=== PATIENT | female | born 1975 | race Caucasian/White ===

== ENCOUNTER 2017-11-28 16:41 | Emergency (ER) | payer OTHER ==
[~2017-11-28] VITALS: Ht 170.2 cm; Wt 127.3 kg
[2017-11-28 16:43] VITALS: TEMP 98.5
[2017-11-28] MEDS ORDERED: NORVASC 10MG10 MG PO (17:00)
[2017-11-28] MEDS ORDERED: NEURONTIN800 MG/TAB PO (17:00)
[2017-11-28] MEDS ORDERED: COREG 6.256.25 MG/TA PO (17:00)
[2017-11-28] MEDS ORDERED: DESYREL 50MG50 MG PO (17:01)
[2017-11-28] MEDS ORDERED: PRILOSEC 20MG20 MG PO (17:01)
[2017-11-28] MEDS ORDERED: JARDIANCE25 (17:01)
[2017-11-28] MEDS ORDERED: GLUCOPHAGE XR500 M1 PO (17:01)
[2017-11-28] MEDS ORDERED: LIPITOR 80MG80 MG PO (17:01)
[2017-11-28] MEDS ORDERED: TOUJEO300 U/ML SQ (17:02)
[2017-11-28] MEDS ORDERED: LEVAQUIN 750MG750 M1 PO (17:39)
[2017-11-28 17:42] VITALS: BP 162/80; PULSE 94
== END 2017-11-28 17:54 | disposition home or self-care (01) ==
LOC: COL.ER 16:41
DX: S91.302A Unspecified open wound, left foot, initial encounter (principal); S93.402A Sprain of unspecified ligament of left ankle, initial encounter; E11.9 Type 2 diabetes mellitus without complications; Z79.4 Long term (current) use of insulin; Y92.838 Other recreation area as the place of occurrence of the external cause

== ENCOUNTER 2018-06-10 20:23 | Emergency (ER) | payer OTHER ==
[~2018-06-10] VITALS: Ht 170.2 cm; Wt 122.7 kg
[~2018-06-10 20:23] MED LIST: COREG 6.256.25 MG/TA PO; DESYREL 50MG50 MG PO; GLUCOPHAGE XR500 M1 PO; JARDIANCE25; LEVAQUIN 750MG750 M1 PO; LIPITOR 80MG80 MG PO; NEURONTIN800 MG/TAB PO; NORVASC 10MG10 MG PO; PRILOSEC 20MG20 MG PO; TOUJEO300 U/ML SQ
[2018-06-10 20:28] VITALS: BP 214/100; TEMP 97.1
[2018-06-10] MEDS ORDERED: BACTRIM DS 8001 TAB PO (22:32)
[2018-06-10] MEDS ORDERED: CEPHALEXIN500 M1 PO (22:32)
[2018-06-10 22:58] VITALS: PULSE 86
== END 2018-06-10 22:59 | disposition home or self-care (01) ==
LOC: COL.ER 20:23
DX: L02.415 Cutaneous abscess of right lower limb (principal); Z86.14 Personal history of Methicillin resistant Staphylococcus aureus infection

== ENCOUNTER 2019-01-28 08:19 | Emergency (ER) | payer OTHER ==
[~2019-01-28] VITALS: Ht 170.2 cm; Wt 113.6 kg
[~2019-01-28 08:19] MED LIST changes: +BACTRIM DS 8001 TAB PO; +CEPHALEXIN500 M1 PO
[2019-01-28 08:48] VITALS: TEMP 99.3
[2019-01-28] MEDS ORDERED: ASPIRIN 81M81 MG/TA2 PO (09:05)
[2019-01-28 09:06] LABS: BASO # 0.1 (0.0-0.2); BASO % 0.7 % (0.0-2.0); EOS # 0.3 (0.0-0.7); EOS % 3.7 % (0-4.0); GRAN % 59.9 % (42.2-75.2); HEMOGLOBIN 11.5 g/dl (12.5-16.0); LYMPH # 2.3 (1.2-3.4); LYMPH % 27.4 % (20.0-51.0); MEAN CELL VOLUME 81 fl (80.0-100.0); MEAN CORPUSCULAR HEMOGLOBIN 26 pg (27.0-31.0); MEAN CORPUSCULAR HGB CONC 32 g/dl (33.0-37.0); MEAN PLATELET VOLUME 9.7 fl (7.4-10.4); MONO # 0.7 (0.1-0.6); MONO % 7.7 % (1.7-9.3); PLATELET COUNT 268 K/mm3 (130-400)
[2019-01-28 09:07] LABS: HEMATOCRIT 36.4 % (37.0-47.0)
[2019-01-28] MEDS ORDERED: ACTOS30 MG PO (09:07)
[2019-01-28] MEDS ORDERED: ZESTORETIC 25 M1 TAB PO (09:08)
[2019-01-28 09:15] LABS: INR 0.8 (0.8-3.0); PROTHROMBIN TIME 9.8 SECONDS (9.7-12.8)
[2019-01-28 09:17] LABS: PARTIAL THROMBOPLASTIN TIME 28.7 SECONDS (26.0-37.0)
[2019-01-28 09:19] LABS: ALANINE AMINOTRANSFERASE 10 U/L (9-52); ALBUMIN 4.1 gm/dL (3.5-5.0); ALKALINE PHOSPHATASE 155 U/L (50-136); ANION GAP 11 mmol/L (7-16); AST,SGOT 17 U/L (15-37); BILIRUBIN,TOTAL 0.3 mg/dL (0.0-1.0); BLOOD UREA NITROGEN 17 mg/dL (7-17); CALCIUM 9.4 mg/dL (8.4-10.2); CARBON DIOXIDE 24 mmol/L (22-30); CHLORIDE 102 mmol/L (98-107); CREATININE, serum 0.51 (0.52-1.25); GLUCOSE 281 mg/dL (74-106); SODIUM 137 mmol/L (137-145); TOTAL PROTEIN 7.4 gm/dL (6.4-8.2)
[2019-01-28 09:30] LABS: TROPONIN-I < 0.012 ng/mL (0.000-0.035)
[2019-01-28 10:00] LABS: D-DIMER < 200.00 ng/mLDDu (200-230)
[2019-01-28 11:56] VITALS: BP 160/96; PULSE 87
== END 2019-01-28 11:56 | disposition home or self-care (01) ==
LOC: COL.ER 08:19
PROVIDERS: Family Medicine
DX: R07.89 Other chest pain (principal); I10 Essential (primary) hypertension; E78.5 Hyperlipidemia, unspecified; Z79.4 Long term (current) use of insulin

== ENCOUNTER 2021-05-23 17:09 | Inpatient (IN) | payer OTHER ==
[~2021-05-23] VITALS: Ht 170.2 cm; Wt 110.3 kg
[~2021-05-23 17:09] MED LIST changes: +ACTOS30 MG PO; +ASPIRIN 81M81 MG/TA2 PO; +ZESTORETIC 25 M1 TAB PO
[2021-05-23 18:48] LABS: BASO % 0.6 % (0.0-2.0); EOS # 0.3 K/mm3 (0.0-0.7); EOS % 3.9 % (0-4.0); GRAN # 4.2 K/mm3 (1.4-6.5); HEMATOCRIT 44.4 % (37.0-47.0); HEMOGLOBIN 15.1 g/dl (12.5-16.0); LYMPH % 27.8 % (20.0-51.0); MEAN CELL VOLUME 88 fl (80.0-100.0); MEAN CORPUSCULAR HEMOGLOBIN 30 pg (27.0-31.0); MEAN CORPUSCULAR HGB CONC 34 g/dl (33.0-37.0); MEAN PLATELET VOLUME 9.6 fl (7.4-10.4); MONO # 0.6 K/mm3 (0.1-0.6); MONO % 8.1 % (1.7-9.3); PLATELET COUNT 234 K/mm3 (130-400); RED BLOOD COUNT 5.06 M/mm3 (4.10-5.30); REDCELL DISTRIBUTION WIDTH-CV 11.8 % (11.5-14.5)
[2021-05-23 19:10] LABS: ALBUMIN 3.7 gm/dL (3.5-5.0); BILIRUBIN,TOTAL 0.4 mg/dL (0.2-1.2); C-REACTIVE PROTEIN 15.55 mg/dL (0.00-0.50); CALCIUM 9.9 mg/dL (8.4-10.2); CREATININE, serum 0.91 mg/dL (0.57-1.11)
[2021-05-23 19:15] LABS: ERYTHROCYTE SEDIMENTATION RATE 13 mm/hr (0-20)
[2021-05-23] MEDS ORDERED: PRINIVIL20 MG PO (20:53)
[2021-05-23 23:05] VITALS: BP 183/82; PULSE 95; TEMP 98.2
--- NOTE | 2021-05-23 23:05 | NUR ---
Pt admitted to room 351 per WC from ED, transferred self from chair to bed without assist, up to restroom indepently, IV and IVF present in LAC, dressing to rt toes intact. oriented to room and POC
--- NOTE | 2021-05-24 00:52 | NUR ---
telemetry dc'd per order from Anita Dumont APRN/chemical waste management technician Sourav
[2021-05-24 01:15] VITALS: BP 174/85
[2021-05-24 05:02] VITALS: BP 166/78; PULSE 94; TEMP 97.5
[2021-05-24 06:23] LABS: BASO # 0.1 K/mm3 (0.0-0.2); BASO % 0.5 % (0.0-2.0); EOS # 0.2 K/mm3 (0.0-0.7); EOS % 1.6 % (0-4.0); GRAN # 6.5 K/mm3 (1.4-6.5); GRAN % 70.4 % (42.2-75.2); HEMATOCRIT 37.4 % (37.0-47.0); LYMPH % 21.3 % (20.0-51.0); MEAN CELL VOLUME 88 fl (80.0-100.0); MEAN CORPUSCULAR HEMOGLOBIN 30 pg (27.0-31.0); MEAN CORPUSCULAR HGB CONC 34 g/dl (33.0-37.0); MEAN PLATELET VOLUME 10.1 fl (7.4-10.4); MONO # 0.6 K/mm3 (0.1-0.6); PLATELET COUNT 227 K/mm3 (130-400); RED BLOOD COUNT 4.24 M/mm3 (4.10-5.30); REDCELL DISTRIBUTION WIDTH-CV 11.7 % (11.5-14.5)
[2021-05-24 06:37] LABS: CALCIUM 8.6 mg/dL (8.4-10.2); CREATININE, serum 0.7 mg/dL (0.57-1.11); POTASSIUM 3.6 mmol/L (3.5-4.5)
[2021-05-24 06:48] LABS: HEMOGLOBIN 12.8 g/dl (12.5-16.0)
--- NOTE | 2021-05-24 07:14 | NUR ---
NOTIFIED MONTSE STINSON PER PHONE OF CONSULT.
--- NOTE | 2021-05-24 07:41 | NUR ---
Pt treated for elevated BGM this am, elevated BP x1, hydralazine given IV, dressing to right foot fell off in bed, redressed with gauze and chucho wrap. morphine started for pain, given x1, pt able to eat regular ADA diet after arrived to room, on RA, afebrile.
[2021-05-24 08:24] VITALS: BP 182/87; PULSE 89; TEMP 97.9
--- NOTE | 2021-05-24 11:13 | NUR ---
PT RESTING IN BED, C/O NAUSEA PRN ZOFRAN GIVEN PER ORDERS. SECOND TOE ON RIGHT FOOT WITH CELLULITIS. DRESSED WITH GAUZE AND ACEWRAP. PT VOMITED AND THEN FELT BETTER AFTER GETTING SICK.
[2021-05-24 12:05] VITALS: BP 170/82; PULSE 85; TEMP 97.7
--- NOTE | 2021-05-24 13:03 | NUR ---
Anesthesiologist Assistant Certified prayed and offered support with patient while spouse was in room.
--- NOTE | 2021-05-24 15:57 | NUR ---
Plan is to return home in with Nathaniel . Patient reports that she has an alternate contact with his mother in-law Kristin. PCP is Dr. Dionne Page. Patient reports that use of a cane prn and prefers [facility] in [place], [place]. Patient shares that she is in some pain about a 6 out of ten. Patient reports that she is interested in signing a DPOA form for HC. Patient reports that she wants to get back on track with taking her medications and managing her diabeties. Patient is okay with a follow up referral to her PCP. Patient shares care concern on response to call light. Educated patient on supports and apologized for care concern. Educated patient on services with case management. Will follow up on DPOA PPW.
[2021-05-24 16:00] VITALS: BP 161/73; PULSE 85; TEMP 97.6
--- NOTE | 2021-05-24 18:17 | NUR ---
UP TO BR SEVERAL TIMES THIS SHIFT.
--- NOTE | 2021-05-24 18:41 | NUR ---
PT TO HAVE MRI WEDNESDAY, NOT AVAILABLE ON WEEKENDS.
[2021-05-24 21:04] VITALS: BP 141/71; PULSE 77; TEMP 98.3
--- NOTE | 2021-05-24 22:41 | NUR ---
IVF dc'd per order
[2021-05-25 00:33] VITALS: BP 167/81; PULSE 69; TEMP 98
--- NOTE | 2021-05-25 03:32 | NUR ---
SHENA REA, ENSURED ORTHO CONSULT WAS COMPLETED AT TIME CONSULT WAS INPUT. SHENA ZAMBRANO CONFIRMED AT THIS TIME. CONSULT COMPLETED.
[2021-05-25 04:17] VITALS: BP 158/82; PULSE 73; TEMP 98.1
[2021-05-25 06:37] LABS: HEMOGLOBIN 12.3 g/dl (12.5-16.0); MEAN CELL VOLUME 89 fl (80.0-100.0); MEAN CORPUSCULAR HEMOGLOBIN 30 pg (27.0-31.0); MEAN CORPUSCULAR HGB CONC 34 g/dl (33.0-37.0); MEAN PLATELET VOLUME 10.1 fl (7.4-10.4); PLATELET COUNT 223 K/mm3 (130-400); RED BLOOD COUNT 4.08 M/mm3 (4.10-5.30); REDCELL DISTRIBUTION WIDTH-CV 11.8 % (11.5-14.5)
--- NOTE | 2021-05-25 06:47 | NUR ---
up ad sydni in room, no c/o pain tonight, dressing to rt foot intact and secure.
[2021-05-25 07:07] LABS: CREATININE, serum 0.76 mg/dL (0.57-1.11)
[2021-05-25 07:48] LABS: HEMATOCRIT 36.4 % (37.0-47.0)
[2021-05-25 08:26] VITALS: BP 166/79; PULSE 76; TEMP 98.2
[2021-05-25 12:06] VITALS: BP 168/77; PULSE 82; TEMP 98.2
[2021-05-25 17:23] VITALS: BP 160/85; PULSE 75; TEMP 97.9
[2021-05-25 20:25] VITALS: BP 153/75; PULSE 74; TEMP 97.7
[2021-05-26 02:03] VITALS: BP 152/77; PULSE 76; TEMP 98.2
--- NOTE | 2021-05-26 06:54 | NUR ---
awake and sitting up in bed, bedside shift report received from SHENA Cedeno
--- NOTE | 2021-05-26 07:14 | NUR ---
pt on RA, afebrile, no c/o pain this shift, up to restroom ad sydni. dressing to rt foot intact.
--- NOTE | 2021-05-26 07:35 | NUR ---
sitting up in bed having breakfast, am meds given
[2021-05-26 07:42] LABS: HEMATOCRIT 37.1 % (37.0-47.0); HEMOGLOBIN 12.6 g/dl (12.5-16.0); MEAN CELL VOLUME 89 fl (80.0-100.0); MEAN CORPUSCULAR HEMOGLOBIN 30 pg (27.0-31.0); MEAN CORPUSCULAR HGB CONC 34 g/dl (33.0-37.0); PLATELET COUNT 211 K/mm3 (130-400); RED BLOOD COUNT 4.15 M/mm3 (4.10-5.30); REDCELL DISTRIBUTION WIDTH-CV 11.9 % (11.5-14.5)
[2021-05-26 07:50] VITALS: BP 175/83; PULSE 72; TEMP 98
--- NOTE | 2021-05-26 07:50 | NUR ---
had breakfast and tolerated well, full assessment completed, see interventions for further info,
[2021-05-26 08:03] LABS: CALCIUM 9.3 mg/dL (8.4-10.2); CREATININE, serum 0.74 mg/dL (0.57-1.11); POTASSIUM 3.6 mmol/L (3.5-4.5)
--- NOTE | 2021-05-26 09:15 | NUR ---
up and about in room independently,
--- NOTE | 2021-05-26 11:30 | NUR ---
c/o pain to right foot/toe, medicated with roxicodone 5mg po
[2021-05-26 11:55] VITALS: BP 151/76; PULSE 64; TEMP 97.3
--- NOTE | 2021-05-26 12:05 | NUR ---
Initial visit; Patient and her mom thanked Power Ballast Machine Operator for looking in on her and offeringprayer and God's blessings. Power Ballast Machine Operator will follow-up.
--- NOTE | 2021-05-26 13:03 | NUR ---
bedside shift report given to SHENA Eng
[2021-05-26 16:00] VITALS: BP 164/79; PULSE 64; TEMP 98.3
--- NOTE | 2021-05-26 18:11 | NUR ---
Pt has done well over shift since receiving her at 1300. Resting in bed, sititng up, PRN pain meds given once overshift. Re-wrapped dressing to RLE. Foot looks well. Denies needs, will give report to nightshift nurse who will resume care.
[2021-05-26 20:40] VITALS: BP 124/68; PULSE 62; TEMP 97.9
--- NOTE | 2021-05-26 21:00 | NUR ---
Patient is resting in bed, alert and oriented x 4, VSS, denies pain, nausea or vomiting. Assessment completed, medications provided. No further needs at this time. Call light within reach.
[2021-05-27] VITALS (11 sets, daily range): BP systolic 128–163; BP diastolic 57–84; PULSE 59–68; TEMP 97.1–98.2
--- NOTE | 2021-05-27 06:25 | NUR ---
Patient has been NPO from midnight. She reported pain in her right foot. PRN provided. PT was able to rest most of the time. Antibiotics running. Report will be given to day RN.
[2021-05-27 06:32] LABS: BASO % 0.5 % (0.0-2.0); EOS # 0.2 K/mm3 (0.0-0.7); EOS % 3.8 % (0-4.0); GRAN # 3.1 K/mm3 (1.4-6.5); GRAN % 52.9 % (42.2-75.2); HEMOGLOBIN 11.6 g/dl (12.5-16.0); LYMPH # 1.9 K/mm3 (1.2-3.4); LYMPH % 32.6 % (20.0-51.0); MEAN CELL VOLUME 93 fl (80.0-100.0); MEAN CORPUSCULAR HEMOGLOBIN 30 pg (27.0-31.0); MEAN CORPUSCULAR HGB CONC 33 g/dl (33.0-37.0); MEAN PLATELET VOLUME 10.2 fl (7.4-10.4); MONO # 0.6 K/mm3 (0.1-0.6); MONO % 9.9 % (1.7-9.3); PLATELET COUNT 183 K/mm3 (130-400); RED BLOOD COUNT 3.85 M/mm3 (4.10-5.30); REDCELL DISTRIBUTION WIDTH-CV 11.8 % (11.5-14.5)
[2021-05-27 06:43] LABS: HEMATOCRIT 35.7 % (37.0-47.0)
[2021-05-27 06:50] LABS: CALCIUM 8.9 mg/dL (8.4-10.2); CREATININE, serum 0.79 mg/dL (0.57-1.11); POTASSIUM 3.7 mmol/L (3.5-4.5)
--- NOTE | 2021-05-27 07:30 | NUR ---
Assessment completed, alert/oriented, vital signs stable, pain controlled, she has been NPO for surgery, right foot dressing C/D/I and patient is going to OR for partial amputation of that right foot/great toe, blood glucose levels remain >200, holding fast acting insulin as patient is NPO/ will reassess and treat when she arrives back from PACU, heart RRR, lungs CTA/ no resp.difficulty, IV zosyn infusing at this time, denies other needs at this time
--- NOTE | 2021-05-27 07:30 | NUR ---
Patient is going to OR for right partial toe/foot amputation at this time, she has been NPO, consent signed, kelsey ARANGO, I notified OR staff that I will direct her to the waiting room once he arrives
--- NOTE | 2021-05-27 09:00 | NUR ---
Patient arrived back to room 351 from surgery at this time, she is drowsy but arousable, vital signs stable, denies pain, right toe dressing C/D/I, present, will continue to monitor
--- NOTE | 2021-05-27 11:00 | NUR ---
patient continues to do well post-op, she is now aler/oriented, vital signs stable, nerve block still working/ denies pain, tolerating PO intake
--- NOTE | 2021-05-27 21:30 | NUR ---
Patient is in chair with family at room. Alert and oriented x4, VSS, reports constant pain in her incision. PRN provided. Assessment completed. Medications provided. No further needs at this time. Call light within reach.
[2021-05-28 00:26] VITALS: BP 131/97; PULSE 62; TEMP 97.6
[2021-05-28 04:11] VITALS: BP 106/54; PULSE 67; TEMP 98.7
--- NOTE | 2021-05-28 05:59 | NUR ---
Patient has been complaining of pain in the incision. PRN provided. Recieving antibiotics infusion. Report will be given to day RN.
[2021-05-28 06:58] LABS: BASO # 0.1 K/mm3 (0.0-0.2); BASO % 0.9 % (0.0-2.0); EOS # 0.2 K/mm3 (0.0-0.7); EOS % 3.6 % (0-4.0); GRAN # 3.5 K/mm3 (1.4-6.5); GRAN % 54.3 % (42.2-75.2); HEMOGLOBIN 11.2 g/dl (12.5-16.0); LYMPH # 2.1 K/mm3 (1.2-3.4); LYMPH % 32.6 % (20.0-51.0); MEAN CELL VOLUME 92 fl (80.0-100.0); MEAN CORPUSCULAR HEMOGLOBIN 30 pg (27.0-31.0); MEAN CORPUSCULAR HGB CONC 32 g/dl (33.0-37.0); MEAN PLATELET VOLUME 10.1 fl (7.4-10.4); MONO # 0.5 K/mm3 (0.1-0.6); MONO % 8.3 % (1.7-9.3); PLATELET COUNT 187 K/mm3 (130-400); REDCELL DISTRIBUTION WIDTH-CV 11.9 % (11.5-14.5)
[2021-05-28 07:18] LABS: CREATININE, serum 0.77 mg/dL (0.57-1.11); HEMATOCRIT 34.8 % (37.0-47.0); POTASSIUM 3.9 mmol/L (3.5-4.5)
[2021-05-28 07:26] VITALS: BP 143/81; PULSE 66; TEMP 97.8
--- NOTE | 2021-05-28 08:21 | NUR ---
Scheduled medications given. Shift assessment complete. Patient C/O 8/10 throbbing pain at surgical site. PRN medication given. Extremity elevated. Dressing clean, dry, and intact. Scaling and flaking noted on left heel. Patient denies any further pain, discomfort, SOA, or further needs at this time. Education given regarding incentive spirometer. VSS. Patient A&O.
[2021-05-28] MEDS ORDERED: CEPHALEXIN500 M1 PO (09:49)
[2021-05-28] MEDS ORDERED: GLUCOSE TEST ST1 DEV MC (10:07)
[2021-05-28] MEDS ORDERED: LIPITOR 80MG80 MG PO (10:10)
[2021-05-28] MEDS ORDERED: COREG 6.256.25 MG/TA PO ×2 (10:11)
[2021-05-28] MEDS ORDERED: PRINIVIL40 MG PO (10:12)
[2021-05-28] MEDS ORDERED: ROXICODONE 55 MG/TAB PO (10:14)
[2021-05-28] MEDS ORDERED: LYRICA 25MG CAP25 MG PO (10:15)
[2021-05-28] MEDS ORDERED: NOVOLIN 70100 UNIT/2 SQ (10:21)
[2021-05-28] MEDS ORDERED: INSULIN PEN NE1 EAC1 MC (10:26)
[2021-05-28] MEDS ORDERED: BD ALCOHOL1 SWA MC (10:26)
[2021-05-28] MEDS ORDERED: GLUCAGON EMERGEN1 M1 SQ (10:26)
[2021-05-28] MEDS ORDERED: CONTROL SOLUTI1 EAC1 MC (10:26)
[2021-05-28] MEDS ORDERED: LANCETS MC (10:26)
[2021-05-28] MEDS ORDERED: GLUTOSE 1515 GM PO (10:26)
[2021-05-28] MEDS ORDERED: COREG12.5 MG PO (10:38)
[2021-05-28 11:17] VITALS: BP 113/61; PULSE 63; TEMP 98.2
--- NOTE | 2021-05-28 14:01 | NUR ---
The clinical team is ready to discharge the patient today. The patient informed the team that she does not get paid until Wednesday and will not be able to afford her meds until then. ATIF staffed with the pharmacist. The pharmacist called into [facility] a fews days worth of meds that the patient will need. Total is $38.05. ATIF contacted and faxed the med voucher to Oksana at [facility]. ATIF met with the patient to update. The patient had no other concerns for ATIF. 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 No additional needs at this time.
--- NOTE | 2021-05-28 14:52 | NUR ---
Patient deemed fit for discharge. IV DC's, catheter intact, no signs of phlebitis. Discharge education/instructions given. Patient verbalized that she would not be able to afford medications until Wednesday. Social work and pharmacy notified. Voucher for [facility] given. Patient educated of dressing changes, supplies given. All questions answered. PRN tylenol given. Education given regarding glucose checks and insulin administration given. Patient was able to show the RN how to do it correctly. Patient denies any further pain, discomfort, SOA, or needs at this time. VSS. Patient A&O. Patient escorted from [facility] via wheelchair by [facility] Staff. transporting home.
== END 2021-05-28 14:47 | disposition home or self-care (01) | DRG 617 ==
LOC: COL.ER 17:09 → MEDICAL 19:51
PROVIDERS: Nurse Practitioner Family; Orthopaedic Surgery; Personal Emergency Response Attendant; Physician Assistant; ADMIT Internal Medicine
PROC: 0Y6R0Z1 Detachment at Right 2nd Toe, High, Open Approach (ICD-10-PCS; principal; 2021-05-27 08:15)
DX: E11.69 Type 2 diabetes mellitus with other specified complication (principal); M86.9 Osteomyelitis, unspecified; E78.5 Hyperlipidemia, unspecified; E11.621 Type 2 diabetes mellitus with foot ulcer; L97.519 Non-pressure chronic ulcer of other part of right foot with unspecified severity; E11.65 Type 2 diabetes mellitus with hyperglycemia; I10 Essential (primary) hypertension; E11.42 Type 2 diabetes mellitus with diabetic polyneuropathy; Z86.14 Personal history of Methicillin resistant Staphylococcus aureus infection; E11.628 Type 2 diabetes mellitus with other skin complications; L03.031 Cellulitis of right toe; Z79.82 Long term (current) use of aspirin; L89.899 Pressure ulcer of other site, unspecified stage
CPT/HCPCS: 99223-AI; 99232-AI; 99233-AI; 99239; J0360; J1170; J1650; J1815; J2250; J2270; J2405; J2543; J2704; J7030

== ENCOUNTER → 2021-08-18 | Outpatient (RCR) | payer OTHER ==
[~2021-08-18] MED LIST changes: +AMOXICILLIN 8751 TAB PO; +BD ALCOHOL1 SWA MC; +CELEBREX 200MG200 MG PO; +CONTROL SOLUTI1 EAC1 MC; +COREG 25MG25 MG/TAB PO; +COREG12.5 MG PO; +EPA FISH OIL1 SGL PO; +FLINTSTONES COM1 CT1 PO; +GLUCAGON EMERGEN1 M1 SQ; +GLUCOSE TEST ST1 DEV MC; +GLUTOSE 1515 GM PO; +INSULIN PEN NE1 EAC1 MC; +JANUMXR100-1000 PO; +JARDIANCE25 PO; +LANCETS MC; +LYRICA 25MG CAP25 MG PO; +LYRICA 75MG CAP75 MG PO; +NOVOLIN 70100 UNIT/2 SQ; +PRINIVIL20 MG PO; +PRINIVIL40 MG PO; +ROXICODONE 55 MG/TAB PO; +RYBELSUS7 MG PO; +ZOFRAN 4MG T4 MG/TAB PO; +ZYVOX 600MG600 MG PO
== END | disposition home or self-care (01) ==
LOC: WSOT
DX: M20.021 Boutonniere deformity of right finger(s) (principal); M25.522 Pain in left elbow; E11.59 Type 2 diabetes mellitus with other circulatory complications; I10 Essential (primary) hypertension; E78.5 Hyperlipidemia, unspecified; Z79.4 Long term (current) use of insulin

== ENCOUNTER 2021-09-11 16:00 | Outpatient (RCR) | payer OTHER ==
[~2021-09-11 16:00] MED LIST changes: -AMOXICILLIN 8751 TAB PO; -CELEBREX 200MG200 MG PO; -COREG 25MG25 MG/TAB PO; -EPA FISH OIL1 SGL PO; -FLINTSTONES COM1 CT1 PO; -JANUMXR100-1000 PO; -JARDIANCE25 PO; -LYRICA 75MG CAP75 MG PO; -RYBELSUS7 MG PO; -ZOFRAN 4MG T4 MG/TAB PO; -ZYVOX 600MG600 MG PO
== END 2021-09-18 | disposition home or self-care (01) ==
LOC: WSOT
DX: S53.105D Unspecified dislocation of left ulnohumeral joint, subsequent encounter (principal); M20.029 Boutonniere deformity of unspecified finger(s); X58.XXXD Exposure to other specified factors, subsequent encounter

== ENCOUNTER 2021-11-11 15:33 | Emergency (ER) | payer OTHER ==
[~2021-11-11] VITALS: Ht 170.2 cm; Wt 111.4 kg
[2021-11-11 15:52] VITALS: TEMP 98.4
[2021-11-11 16:38] LABS: BASO # 0.1 K/mm3 (0.0-0.2); BASO % 0.4 % (0.0-2.0); EOS # 0.4 K/mm3 (0.0-0.7); EOS % 3.2 % (0.0-4.0); GRAN # 10.4 K/mm3 (1.4-6.5); GRAN % 74.9 % (42.2-75.2); HEMOGLOBIN 12.2 g/dl (12.5-16.0); LYMPH # 1.8 K/mm3 (1.2-3.4); LYMPH % 13.2 % (20.0-51.0); MEAN CELL VOLUME 85 fl (80.0-100.0); MEAN CORPUSCULAR HEMOGLOBIN 28 pg (27-31); MEAN CORPUSCULAR HGB CONC 33 g/dl (33.0-37.0); MEAN PLATELET VOLUME 9.5 fl (7.4-10.4); MONO # 1.1 K/mm3 (0.1-0.6); MONO % 7.8 % (1.7-9.3); PLATELET COUNT 289 K/mm3 (130-400); RED BLOOD COUNT 4.33 M/mm3 (4.10-5.30); REDCELL DISTRIBUTION WIDTH-CV 12.9 % (11.5-14.5)
[2021-11-11 16:39] LABS: HEMATOCRIT 36.9 % (37.0-47.0)
[2021-11-11 16:54] LABS: C-REACTIVE PROTEIN 18.76 mg/dL (0.00-0.50); CREATININE, serum 0.97 mg/dL (0.57-1.11); POTASSIUM 3.9 mmol/L (3.5-4.5)
[2021-11-11] MEDS ORDERED: ZYVOX 600MG600 MG PO (17:08)
[2021-11-11 17:14] VITALS: BP 141/75; PULSE 87
[2021-11-12] MEDS ORDERED: JARDIANCE25 PO (16:54)
[2021-11-12] MEDS ORDERED: PRILOSEC 20MG20 MG PO (16:58)
[2021-11-12] MEDS ORDERED: JANUMXR100-1000 PO (16:59)
[2021-11-12] MEDS ORDERED: RYBELSUS7 MG PO (17:00)
[2021-11-12] MEDS ORDERED: DESYREL 50MG50 MG PO (17:00)
[2021-11-12] MEDS ORDERED: CELEBREX 200MG200 MG PO (17:01)
[2021-11-12] MEDS ORDERED: COREG 25MG25 MG/TAB PO (17:32)
[2021-11-12] MEDS ORDERED: LYRICA 75MG CAP75 MG PO (17:34)
[2021-11-12] MEDS ORDERED: EPA FISH OIL1 SGL PO (17:37)
[2021-11-12] MEDS ORDERED: FLINTSTONES COM1 CT1 PO (17:38)
== END 2021-11-11 17:16 | disposition home or self-care (01) ==
LOC: COL.ER 15:33
PROVIDERS: Emergency Medicine
DX: M86.9 Osteomyelitis, unspecified (principal); L03.115 Cellulitis of right lower limb; E11.9 Type 2 diabetes mellitus without complications; Z91.040 Latex allergy status; Z88.1 Allergy status to other antibiotic agents
CPT/HCPCS: J2270; J2543

== ENCOUNTER 2021-11-12 14:39 | Inpatient (IN) | payer OTHER ==
[~2021-11-12] VITALS: Ht 170.2 cm; Wt 111.6 kg
[~2021-11-12 14:39] MED LIST changes: +ZYVOX 600MG600 MG PO
[2021-11-12 16:20] LABS: BASO # 0.1 K/mm3 (0.0-0.2); BASO % 0.6 % (0.0-2.0); EOS # 0.5 K/mm3 (0.0-0.7); EOS % 4.4 % (0.0-4.0); GRAN # 8.2 K/mm3 (1.4-6.5); GRAN % 68.3 % (42.2-75.2); HEMATOCRIT 37.8 % (37.0-47.0); HEMOGLOBIN 12.2 g/dl (12.5-16.0); LYMPH # 2.2 K/mm3 (1.2-3.4); LYMPH % 18.1 % (20.0-51.0); MEAN CELL VOLUME 88 fl (80.0-100.0); MEAN CORPUSCULAR HEMOGLOBIN 28 pg (27-31); MEAN CORPUSCULAR HGB CONC 32 g/dl (33.0-37.0); MEAN PLATELET VOLUME 9.6 fl (7.4-10.4); MONO % 8.3 % (1.7-9.3); PLATELET COUNT 305 K/mm3 (130-400); RED BLOOD COUNT 4.32 M/mm3 (4.10-5.30); REDCELL DISTRIBUTION WIDTH-CV 12.8 % (11.5-14.5)
[2021-11-12 16:36] LABS: C-REACTIVE PROTEIN 15.29 mg/dL (0.00-0.50); CREATININE, serum 0.91 mg/dL (0.57-1.11)
[2021-11-12] MEDS ORDERED: JARDIANCE25 PO (16:54)
[2021-11-12] MEDS ORDERED: PRILOSEC 20MG20 MG PO (16:58)
[2021-11-12] MEDS ORDERED: JANUMXR100-1000 PO (16:59)
[2021-11-12] MEDS ORDERED: DESYREL 50MG50 MG PO (17:00)
[2021-11-12] MEDS ORDERED: RYBELSUS7 MG PO (17:00)
[2021-11-12] MEDS ORDERED: CELEBREX 200MG200 MG PO (17:01)
[2021-11-12 17:15] VITALS: BP 132/74; PULSE 72; TEMP 98.4
[2021-11-12] MEDS ORDERED: COREG 25MG25 MG/TAB PO (17:32)
[2021-11-12] MEDS ORDERED: LYRICA 75MG CAP75 MG PO (17:34)
[2021-11-12] MEDS ORDERED: EPA FISH OIL1 SGL PO (17:37)
[2021-11-12] MEDS ORDERED: FLINTSTONES COM1 CT1 PO (17:38)
--- NOTE | 2021-11-12 18:22 | NUR ---
Patient admitted to room 324 from Er. Med rec updated and completed. Assessment completed. Iv antiboitcs as ordered. Patient up to the bathroom and voided. Dinner ordered, she denies nausea. Right foot re wrapped per patient request. Third toe purple open sore and drainage noted. Also a callous to foot seen. Will report off to nightnurse
--- NOTE | 2021-11-12 19:30 | NUR ---
Pt. sitting up in bed. Pt. is A&OX3, assessment complete. IV to rt. wrist patent, IV fluids infusing per orders. Dessing to rt. foot CDI. Pt. denies pain or other needs, call light within reach.
[2021-11-12 19:56] VITALS: BP 139/72; PULSE 73; TEMP 97.3
[2021-11-13] VITALS (13 sets, daily range): BP systolic 104–143; BP diastolic 52–81; PULSE 68–77; TEMP 97.4–98.6
[2021-11-13 06:43] LABS: BASO # 0.1 K/mm3 (0.0-0.2); BASO % 0.7 % (0.0-2.0); EOS # 0.4 K/mm3 (0.0-0.7); GRAN # 4.8 K/mm3 (1.4-6.5); GRAN % 59.9 % (42.2-75.2); LYMPH # 2.1 K/mm3 (1.2-3.4); LYMPH % 26.1 % (20.0-51.0); MEAN CELL VOLUME 86 fl (80.0-100.0); MEAN CORPUSCULAR HGB CONC 33 g/dl (33.0-37.0); MEAN PLATELET VOLUME 9.7 fl (7.4-10.4); MONO # 0.6 K/mm3 (0.1-0.6); MONO % 7.9 % (1.7-9.3); PLATELET COUNT 256 K/mm3 (130-400); RED BLOOD COUNT 3.54 M/mm3 (4.10-5.30); REDCELL DISTRIBUTION WIDTH-CV 12.8 % (11.5-14.5)
[2021-11-13 06:48] LABS: HEMATOCRIT 30.6 % (37.0-47.0); MEAN CORPUSCULAR HEMOGLOBIN 28 pg (27-31)
[2021-11-13 06:57] LABS: CALCIUM 8.5 mg/dL (8.4-10.2); CREATININE, serum 0.76 mg/dL (0.57-1.11); POTASSIUM 3.7 mmol/L (3.5-4.5)
--- NOTE | 2021-11-13 10:52 | NUR ---
Fusing Machine Operator met with patient to discuss discharge planning. Patient lives in [place] with her , Edmundo (ph#[phone]) [address] Dr. Mason for primary care. Patient obtains medications from [facility] with no difficulties and is employed at [employer] in [place]. Patient does not use any DME and is independent with ADLS. Patient does not have Advance Directives and is not interested in establishing DPOA-HC at this time. Patient plans to return home at time of discharge. Discharge Plan: Home
--- NOTE | 2021-11-13 12:18 | NUR ---
Sandie: No mu-ism preference Situation: Metal Trimmer stopped by on rounds Background: PT is from [facility] in [facility] Assessment: PT seems content. She did ask for prayer. Metal Trimmer prayed with her and she appreciated the visit. Recommendation: Metal Trimmer will follow up as needed.
--- NOTE | 2021-11-13 20:56 | NUR ---
ASSESSMENT COMPLETE. PT LYING IN BED ASLEEP. A&O. COMPLAINING OF THROBBING PAIN IN RIGHT FOOT 10/28. NORCO WAS GIVEN. (SEE EMAR). PT. ALSO COMPLAINING OF MILD NAUSEA. SPRITE ZERO WAS PROVIDED AND ACCEPTED. CALL LIGHT IN REACH. NO FURTHER NEEDS AT THIS TIME.
--- NOTE | 2021-11-14 00:31 | NUR ---
PT. REPORT NAUSEA IS GONE AND PAIN MINIMAL. CALL LIGHT IN REACH. NO FURTHER NEEDS AT THIS TIME.
[2021-11-14 04:06] VITALS: BP 142/77; PULSE 77; TEMP 97.8
--- NOTE | 2021-11-14 05:56 | NUR ---
PT. WAS AWAKE SEVERAL TIMES THROUGHOUT THE NIGHT BUT HAD NO NEEDS. PAIN WAS CONTROLLED WITH A NORCO AROUND 0400 (SEE EMAR). CALL LIGHT IN REACH. NO NEEDS AT THIS TIME.
[2021-11-14 07:31] VITALS: BP 146/82; PULSE 73; TEMP 97.7
[2021-11-14 11:09] VITALS: BP 137/63; PULSE 63; TEMP 98.3
[2021-11-14 15:11] VITALS: BP 131/63; PULSE 65; TEMP 97.5
[2021-11-14 19:42] VITALS: BP 132/69; PULSE 64; TEMP 98.7
--- NOTE | 2021-11-14 21:13 | NUR ---
ASSESSMENT COMPLETE. PT SITTING UP IN BED WATCHING TV. COMPLAINING OF SHARP PAIN 8/10 TO RIGHT FOOT. NORCO WAS GIVEN (SEE EMAR). DRESSING TO RIGHT FOOT CDI. INT TO RIGHT AC PATENT. CALL LIGHT IN REACH. NO FURTHER NEEDS AT THIS TIME.
[2021-11-14 23:18] VITALS: BP 158/75; PULSE 64; TEMP 98.6
[2021-11-15 04:19] VITALS: BP 136/69; PULSE 69; TEMP 97.8
--- NOTE | 2021-11-15 05:13 | NUR ---
PT. SLEPT QUITLY THROUGHOUT THE NIGHT. PAIN WAS ADEQUATELY CONTROLLED WITH ONE NORCO EARLIER IN THE EVENING (SEE EMAR). NO NEEDS IN THE NIGHT.
--- NOTE | 2021-11-15 07:42 | NUR ---
Patient sitting up in bed, A&Ox4. VSS. IV CDI, fluids infusing. Denies pain and discomfort. Right foot dressing CDI. Call light within reach
[2021-11-15 07:56] LABS: BASO # 0.1 K/mm3 (0.0-0.2); EOS # 0.4 K/mm3 (0.0-0.7); EOS % 6.3 % (0.0-4.0); GRAN # 2.9 K/mm3 (1.4-6.5); GRAN % 49.9 % (42.2-75.2); HEMOGLOBIN 11.3 g/dl (12.5-16.0); LYMPH % 34.1 % (20.0-51.0); MEAN CELL VOLUME 86 fl (80.0-100.0); MEAN CORPUSCULAR HEMOGLOBIN 28 pg (27-31); MEAN CORPUSCULAR HGB CONC 33 g/dl (33.0-37.0); MEAN PLATELET VOLUME 9.4 fl (7.4-10.4); MONO # 0.5 K/mm3 (0.1-0.6); MONO % 8.2 % (1.7-9.3); PLATELET COUNT 281 K/mm3 (130-400); RED BLOOD COUNT 4.03 M/mm3 (4.10-5.30); REDCELL DISTRIBUTION WIDTH-CV 12.7 % (11.5-14.5)
[2021-11-15 07:57] LABS: HEMATOCRIT 34.8 % (37.0-47.0)
[2021-11-15 08:00] VITALS: BP 153/74; PULSE 67; TEMP 98.6
[2021-11-15] MEDS ORDERED: AMOXICILLIN 8751 TAB PO (09:35)
[2021-11-15] MEDS ORDERED: ROXICODONE 55 MG/TAB PO (09:36)
[2021-11-15] MEDS ORDERED: ZOFRAN 4MG T4 MG/TAB PO (09:36)
--- NOTE | 2021-11-15 11:58 | NUR ---
Initial visit; Patient thanked Investment Sales Assistant for looking in on her, listening and recognizing her from a previous hospitalization. Ekaterina spoke of her health and states she will be more insistent with physicians when she is concerned about a health issue. Investment Sales Assistant will keep patient in her prayers.
--- NOTE | 2021-11-15 12:35 | NUR ---
Discharge paperwork reviewed with the patient. Patient verbalized an understanding to follow doctors orders. IV removed tip intact. Personal belongings with the patient. Nurse wheeled the patient to the ED entrance. No further needs expressed
== END 2021-11-15 12:35 | disposition home or self-care (01) | DRG 617 ==
LOC: COL.ER 14:39 → SURG 15:51
PROVIDERS: Emergency Medicine; Orthopaedic Surgery; Physician Assistant; ADMIT Student in an Organized Health Care Education/Training Program
PROC: 0Y6T0Z0 Detachment at Right 3rd Toe, Complete, Open Approach (ICD-10-PCS; principal; 2021-11-13 14:00)
DX: E11.69 Type 2 diabetes mellitus with other specified complication (principal); M86.9 Osteomyelitis, unspecified; I10 Essential (primary) hypertension; E78.5 Hyperlipidemia, unspecified; E11.621 Type 2 diabetes mellitus with foot ulcer; L97.519 Non-pressure chronic ulcer of other part of right foot with unspecified severity; L03.031 Cellulitis of right toe; Z79.82 Long term (current) use of aspirin; Z23 Encounter for immunization
CPT/HCPCS: 99222-AI; 99232-AI; 99239; J1650; J1815; J2270; J2543; J7030; J7120

== ENCOUNTER → 2022-05-01 | Outpatient (CLI) | payer OTHER ==
[~2022-05-01] MED LIST changes: +AMOXICILLIN 8751 TAB PO; +CELEBREX 200MG200 MG PO; +COREG 25MG25 MG/TAB PO; +EPA FISH OIL1 SGL PO; +FLINTSTONES COM1 CT1 PO; +JANUMXR100-1000 PO; +JARDIANCE25 PO; +LYRICA 75MG CAP75 MG PO; +RYBELSUS7 MG PO; +ZOFRAN 4MG T4 MG/TAB PO
== END ==
LOC: COL.RAD 10:14
DX: M14.671 Charcot's joint, right ankle and foot (principal); M20.11 Hallux valgus (acquired), right foot; M86.171 Other acute osteomyelitis, right ankle and foot; S92.511A Displaced fracture of proximal phalanx of right lesser toe(s), initial encounter for closed fracture; L89.893 Pressure ulcer of other site, stage 3

== ENCOUNTER → 2022-07-14 | Outpatient (CLI) | payer OTHER ==
[~2022-07-14] MED LIST changes: +CRESTOR40 MG PO; +CUBICIN 500MG500 MG IV; +MAXIPIME2 GM IV; +OZEMPIC1 MG/0.71 SQ; +SYNJARDY XR 121 EACH PO
== END ==
LOC: COL.RAD 06:52
DX: S92.341A Displaced fracture of fourth metatarsal bone, right foot, initial encounter for closed fracture (principal); S92.911A Unspecified fracture of right toe(s), initial encounter for closed fracture; E11.628 Type 2 diabetes mellitus with other skin complications; L08.9 Local infection of the skin and subcutaneous tissue, unspecified; M14.671 Charcot's joint, right ankle and foot; X58.XXXA Exposure to other specified factors, initial encounter
CPT/HCPCS: A9575

== ENCOUNTER 2023-06-14 06:53 | Inpatient (IN) | payer OTHER ==
[2023-06-14] VITALS (573 sets, daily range): BP systolic 106–109; BP diastolic 58–59; PULSE 81–83; TEMP 97.8; O2SAT 88–100
[~2023-06-14] VITALS: Ht 170.2 cm; Wt 120.3 kg
[~2023-06-14 06:53] MED LIST changes: -ASPIRIN 81M81 MG/TA2 PO; +ASPIRIN E.C. 8181 MG PO; +CLEOCIN HCL300 MG PO; +ILOTYCIN5 MG/GM OP; +LYRICA 150MG C150 MG PO; -LYRICA 75MG CAP75 MG PO; -NORVASC 10MG10 MG PO; +NORVASC 5MG5 MG/TAB PO
[2023-06-14 07:41] LABS: HEMATOCRIT 39.2 % (37.0-47.0); HEMOGLOBIN 12.4 g/dl (12.5-16.0); MEAN CELL VOLUME 93 fl (80.0-100.0); MEAN CORPUSCULAR HEMOGLOBIN 30 pg (27-31); MEAN CORPUSCULAR HGB CONC 32 g/dl (33.0-37.0); MEAN PLATELET VOLUME 9.8 fl (7.4-10.4); PLATELET COUNT 231 K/mm3 (130-400); REDCELL DISTRIBUTION WIDTH-CV 13.7 % (11.5-14.5)
[2023-06-14 07:42] LABS: ERYTHROCYTE SEDIMENTATION RATE 65 mm/hr (0-20)
[2023-06-14 08:01] LABS: ALBUMIN 2.7 gm/dL (3.5-5.0); ALKALINE PHOSPHATASE 97 U/L (40-150); ANION GAP 15 mmol/L (7-16); AST,SGOT 8 U/L (5-34); BILIRUBIN,TOTAL 0.3 mg/dL (0.2-1.2); BLOOD UREA NITROGEN 37 mg/dL (7-19); CALCIUM 9.3 mg/dL (8.4-10.2); CHLORIDE 103 mmol/L (98-107); CREATININE, serum 1.66 mg/dL (0.57-1.11); GLUCOSE 306 mg/dL (70-99); POTASSIUM 5.3 mmol/L (3.5-4.5); SODIUM 131 mmol/L (136-145); TOTAL PROTEIN 7.2 gm/dL (6.2-8.1)
[2023-06-14 08:07] LABS: ALANINE AMINOTRANSFERASE < 6 U/L (0-55); C-REACTIVE PROTEIN 40.13 mg/dL (0.00-0.50); CARBON DIOXIDE 13 mmol/L (22-29)
[2023-06-14 08:23] LABS: BAND 8 % (0-10); LYMPHOCYTE 6 % (20.0-51.0); NEUTROPHILS 77 % (42.0-75.2); PLATELET ESTIMATE NORMAL (NORMAL)
[2023-06-14 10:55] LABS: MAGNESIUM 2.6 mg/dL (1.6-2.6); PHOSPHOROUS 3.2 mg/dL (2.3-4.7)
--- NOTE | 2023-06-14 11:30 | NUR ---
Pt arrives to ICU 4 from ED at this time. Pt alert and oriented upon arrival; able to transfer self for ER bed to ICU bed. Pt has [id number] diabetic ulcer to left foot; depth of ulcer unable to be determined due to eschar being present. Ulcer had pungent odor. Yellow drainage drainging from some areas of ulcer and purulent drainage coming from other areas of ulcer. [id number] diabetic ulcer to right foot; possible undermining around edges of ulcer but unable to determine. Edges of ulcer are a dark brown in color; possible eschar but unable to determine. Minimal yellow drainage from wound. No odor present from ulcer. Wound cultures of each ulcer obtained. Wounds were then cleaned with saline and 4x4's then dressed with xeroform gauze, non-adherent pad, 4x4's, and kerlix. Prior to being dressed wounds were photographed per policy with pt's permission. Pt has wallet, purse, and clothes in her possession; recommened to for to take home but he forgot. Pt had this nurse place belongings in closet. Pt informed on plan of care; all questions answered appropriately. Call light in reach and pt instrutcted to call for assistance.
[2023-06-14] MEDS ORDERED: ALDACTONE 100M100 MG PO (11:42)
[2023-06-14] MEDS ORDERED: ACTOS 15MG TAB15 MG PO (11:42)
[2023-06-14 12:46] LABS: CALCIUM 8.6 mg/dL (8.4-10.2); CREATININE, serum 1.65 mg/dL (0.57-1.11); POTASSIUM 4.9 mmol/L (3.5-4.5)
[2023-06-14 15:14] LABS: CALCIUM 8.5 mg/dL (8.4-10.2); CREATININE, serum 1.59 mg/dL (0.57-1.11); POTASSIUM 4.6 mmol/L (3.5-4.5)
[2023-06-14 16:48] LABS: CALCIUM 8.4 mg/dL (8.4-10.2); CREATININE, serum 1.46 mg/dL (0.57-1.11); POTASSIUM 4.7 mmol/L (3.5-4.5)
[2023-06-14 18:51] LABS: CALCIUM 8.3 mg/dL (8.4-10.2); CREATININE, serum 1.4 mg/dL (0.57-1.11); POTASSIUM 4.6 mmol/L (3.5-4.5)
[2023-06-14 21:10] LABS: CALCIUM 8.5 mg/dL (8.4-10.2); CREATININE, serum 1.3 mg/dL (0.57-1.11); POTASSIUM 4.5 mmol/L (3.5-4.5)
[2023-06-14 23:52] LABS: CREATININE, serum 1.27 mg/dL (0.57-1.11); POTASSIUM 4.3 mmol/L (3.5-4.5)
[2023-06-15] VITALS (582 sets, daily range): BP systolic 96–122; BP diastolic 50–69; PULSE 64–89; TEMP 97.8–100.2; O2SAT 84–100
[2023-06-15 01:54] LABS: CREATININE, serum 1.26 mg/dL (0.57-1.11)
[2023-06-15 04:01] LABS: CALCIUM 8.1 mg/dL (8.4-10.2); CREATININE, serum 1.16 mg/dL (0.57-1.11); POTASSIUM 4.2 mmol/L (3.5-4.5)
[2023-06-15 06:10] LABS: CALCIUM 8.6 mg/dL (8.4-10.2); CREATININE, serum 1.28 mg/dL (0.57-1.11); POTASSIUM 4.6 mmol/L (3.5-4.5)
[2023-06-15 06:20] LABS: CHOLESTEROL RISK RATIO 6.3
[2023-06-15 06:23] LABS: C-REACTIVE PROTEIN 34.79 mg/dL (0.00-0.50)
[2023-06-15 07:36] LABS: BASO % 0.3 % (0.0-2.0); EOS # 0.2 K/mm3 (0.0-0.7); EOS % 1.4 % (0.0-4.0); GRAN # 12.3 K/mm3 (1.4-6.5); GRAN % 81.4 % (42.2-75.2); HEMATOCRIT 34.5 % (37.0-47.0); HEMOGLOBIN 11.3 g/dl (12.5-16.0); LYMPH # 0.9 K/mm3 (1.2-3.4); LYMPH % 5.9 % (20.0-51.0); MEAN CELL VOLUME 90 fl (80.0-100.0); MEAN CORPUSCULAR HEMOGLOBIN 29 pg (27-31); MEAN CORPUSCULAR HGB CONC 33 g/dl (33.0-37.0); MEAN PLATELET VOLUME 9.4 fl (7.4-10.4); MONO # 1.5 K/mm3 (0.1-0.6); MONO % 9.9 % (1.7-9.3); PLATELET COUNT 182 K/mm3 (130-400); RED BLOOD COUNT 3.84 M/mm3 (4.10-5.30); REDCELL DISTRIBUTION WIDTH-CV 13.9 % (11.5-14.5)
[2023-06-15 07:52] LABS: CALCIUM 8.3 mg/dL (8.4-10.2); CREATININE, serum 1.11 mg/dL (0.57-1.11); POTASSIUM 4.3 mmol/L (3.5-4.5)
[2023-06-15] MEDS ORDERED: DESYREL 100MG100 MG PO (09:34)
--- NOTE | 2023-06-15 09:37 | NUR ---
PATIENT APPEARS TO BE SLEEPING WITH EYES CLOSED, INSULIN INFUSING WITHOUT DIFFICULTY, BLOOD SUGARS HAVE BEEN COMSISTENTLY UNDER 200. PATIENT COMPLAINS OF HEADACHE WITH COUGHING CENTRALIZED IN THE FOREHEAD. PATIENT HAS BEEN COMPLIANT WITH FREQUENT LAB/SUGAR DRAWS. MRI IS TO BE DONE THIS AFTERNOON PER CLINICAL ASSOC, WITH A FOLLOW UP INQUIRY TO LYDIA POLANCO) POST MRI TO DETERMINE IF SURGERY WILL HAPPEN TODAY OR LATER THIS WEEK.
[2023-06-15 12:18] LABS: CALCIUM 7.8 mg/dL (8.4-10.2); CREATININE, serum 1.09 mg/dL (0.57-1.11); POTASSIUM 4.3 mmol/L (3.5-4.5)
--- NOTE | 2023-06-15 16:34 | NUR ---
REPORT WAS GIVEN TO SHENA BELTRAN, TRANFERRED UPSTAIRS VIA WHEELCHAIR WITH BELONGINGS IN TOW, TO ROOM 306.
--- NOTE | 2023-06-15 16:57 | NUR ---
Pt arrived from ICU by wheelchair to medical floor. Report recieved from SHENA Moulton in ICU by telephone. Pt is alert and oriented x4. Assessment completed. Wounds to BLE covered with dressing and gauze that was done in ICU before transfer. Lungs are coarse to auscultation. BLE swelling +1 noted. Pt reports no pain at this time. Med rec completed with patient. Allergies verified. Rt upper arm PICC patent with no redness, swelling, or drainage noted. Covered with chucho wrap. Pt is on RA with no complications. VSS with a temperature of 99.4 oral. Pt oriented to room, call light, and bathroom. Pt has no complaints at this time. Call light within reach and droplet precautions in place.
[2023-06-16] VITALS (15 sets, daily range): BP systolic 111–132; BP diastolic 53–69; PULSE 77–94; TEMP 98.1–102.5
--- NOTE | 2023-06-16 03:14 | NUR ---
PRN Tylenol administered for increased temperature and pt has complaints of pain with cough. Will continue to assess temperature.
--- NOTE | 2023-06-16 04:34 | NUR ---
Reassessed temperature. Current oral temp 98.1
[2023-06-16 06:12] LABS: MEAN CELL VOLUME 92 fl (80.0-100.0); MEAN CORPUSCULAR HGB CONC 31 g/dl (33.0-37.0); MEAN PLATELET VOLUME 10.1 fl (7.4-10.4); PLATELET COUNT 183 K/mm3 (130-400); RED BLOOD COUNT 3.28 M/mm3 (4.10-5.30)
[2023-06-16 06:15] LABS: HEMATOCRIT 30.3 % (37.0-47.0); HEMOGLOBIN 9.4 g/dl (12.5-16.0); MEAN CORPUSCULAR HEMOGLOBIN 29 pg (27-31)
[2023-06-16 06:45] LABS: BAND 2 % (0-10); LYMPHOCYTE 7 % (20.0-51.0); NEUTROPHILS 82 % (42.0-75.2); PLATELET ESTIMATE NORMAL (NORMAL)
[2023-06-16 09:33] LABS: CALCIUM 7.8 mg/dL (8.4-10.2); CREATININE, serum 1.02 mg/dL (0.57-1.11); POTASSIUM 4.6 mmol/L (3.5-4.5)
--- NOTE | 2023-06-16 15:01 | NUR ---
clean up worker attempted to call patient's room with no response due to being in isolation. SW left a voicemail with pt's , Edmundo [phone].
--- NOTE | 2023-06-16 19:00 | NUR ---
CRAFT ARTIST Anita notified of patients temperatures and CRAFT ARTIST gave verbal order to increase Tylenol to 1000 mg every 6hrs as needed by mouth. This nurse read back order and Anita confirmed.
--- NOTE | 2023-06-16 19:07 | NUR ---
Bedside report received from SHENA Ling. Pt is currently awake in bed visiting with family. Pt has no complaints at this time. Call light within reach and droplet/contact precautions in place.
--- NOTE | 2023-06-16 20:25 | NUR ---
PCT Erick notified this nurse of patient temperature of 102.3 orally. This nurse went and assessed temperature and has come down to 98.9. CLINICAL NURSING COORDINATOR Anita notified of temperature. No new orders at this time. Call light within reach,
--- NOTE | 2023-06-16 21:30 | NUR ---
Dressing to Lt foot changed this shift. Wound to Lt foot is draining malodorus fluid through dressings. Cleansed dressing as ordered and applied xerform with gauze. Pt tolerated well with no complaints of pain.
[2023-06-17] VITALS (12 sets, daily range): BP systolic 110–147; BP diastolic 53–80; PULSE 79–99; TEMP 98.5–101.1
[2023-06-17 06:08] LABS: BASO % 0.3 % (0.0-2.0); EOS # 0.4 K/mm3 (0.0-0.7); EOS % 3.1 % (0.0-4.0); GRAN # 10.3 K/mm3 (1.4-6.5); GRAN % 74.5 % (42.2-75.2); LYMPH # 1.7 K/mm3 (1.2-3.4); LYMPH % 12.3 % (20.0-51.0); MEAN CELL VOLUME 91 fl (80.0-100.0); MEAN CORPUSCULAR HGB CONC 33 g/dl (33.0-37.0); MEAN PLATELET VOLUME 9.8 fl (7.4-10.4); MONO # 1.2 K/mm3 (0.1-0.6); MONO % 8.8 % (1.7-9.3); PLATELET COUNT 187 K/mm3 (130-400); REDCELL DISTRIBUTION WIDTH-CV 14.3 % (11.5-14.5)
[2023-06-17 06:10] LABS: HEMATOCRIT 29.9 % (37.0-47.0); HEMOGLOBIN 9.8 g/dl (12.5-16.0); MEAN CORPUSCULAR HEMOGLOBIN 30 pg (27-31)
[2023-06-17 06:25] LABS: C-REACTIVE PROTEIN 26.9 mg/dL (0.00-0.50); CALCIUM 8.2 mg/dL (8.4-10.2); CREATININE, serum 1.06 mg/dL (0.57-1.11)
--- NOTE | 2023-06-17 19:22 | NUR ---
Bedside report received from SHENA Ling. Pt has no complaints at this time. Contact/droplet precautions in place. Call light within reach.
--- NOTE | 2023-06-17 20:49 | NUR ---
Shift assessment completed. Pt is awake in bed talking on telephone at this time. Lt foot dressings changed. Wounds to Lt foot cleansed as ordered and applied xerform and gauze as ordered. Lt great toe is swollen with some redness but pt reports there is no pain at this time. VSS. Contact/droplet precautions in place. Call light within reach.
[2023-06-18] VITALS (11 sets, daily range): BP systolic 112–145; BP diastolic 45–84; PULSE 68–97; TEMP 98.2–101.6
[2023-06-18 06:25] LABS: BASO # 0.1 K/mm3 (0.0-0.2); BASO % 0.4 % (0.0-2.0); EOS # 0.4 K/mm3 (0.0-0.7); EOS % 3.1 % (0.0-4.0); GRAN # 8.9 K/mm3 (1.4-6.5); GRAN % 68.3 % (42.2-75.2); LYMPH # 2.2 K/mm3 (1.2-3.4); LYMPH % 16.7 % (20.0-51.0); MEAN CELL VOLUME 91 fl (80.0-100.0); MEAN CORPUSCULAR HGB CONC 32 g/dl (33.0-37.0); MONO # 1.3 K/mm3 (0.1-0.6); MONO % 10.1 % (1.7-9.3); PLATELET COUNT 193 K/mm3 (130-400); RED BLOOD COUNT 3.26 M/mm3 (4.10-5.30); REDCELL DISTRIBUTION WIDTH-CV 14.2 % (11.5-14.5)
[2023-06-18 06:30] LABS: HEMATOCRIT 29.7 % (37.0-47.0); HEMOGLOBIN 9.6 g/dl (12.5-16.0); MEAN CORPUSCULAR HEMOGLOBIN 29 pg (27-31)
[2023-06-18 06:41] LABS: C-REACTIVE PROTEIN 22.27 mg/dL (0.00-0.50); CALCIUM 8.2 mg/dL (8.4-10.2); CREATININE, serum 0.95 mg/dL (0.57-1.11); POTASSIUM 4.6 mmol/L (3.5-4.5)
--- NOTE | 2023-06-18 07:00 | NUR ---
PATIENT AWAKE AND ALERT, RESTING IN BED. PATIENT DENIES ANY NEEDS OR COMPLAINTS AT THIS TIME. CALL LIGHT WITHIN REACH.
--- NOTE | 2023-06-18 13:00 | NUR ---
PATIENT AWAKE AND ALERT, RESTING IN BED, NO NEEDS OR COMPLAINTS AT THIS TIME. PATIENT DENEIS ANY PAIN AT THIS TIME. CALL LIGHT WITHIN REACH
--- NOTE | 2023-06-18 15:00 | NUR ---
PATIENT COMPLAINING THAT EARLIER SHE WAS COLD THEN FEL ASLEEP AND WAS UNABLE TO NOTIFY RN. PATIENT CURRENTLY WITH TEMP OF 101.6. HOWEVER IS AWAKE AND ALERT, AND STABLE WALKING TO TOILET AND BACK TO BED. DRESSING TO LLE CHANGED D/T EXCESS DRAINAGE. PATIENTS CALL LIGHT WITHIN REACH
--- NOTE | 2023-06-18 16:12 | NUR ---
Base Brander met with patient to discuss discharge planning. Patient lives outside of [place] and sees Dr. Mason for primary care. Patient lives with her , Edmundo. Patient does not have DPOA-HC and is not interested in completing one at this time. SW discussed the possible need for IV antibiotics. Patient stated she would prefer the [facility] here as she has been there before. SW followed up with Hospitalist who advised patient will likely be discharged on oral antibiotics. Discharge Plan; Home
[2023-06-19] VITALS (13 sets, daily range): BP systolic 103–138; BP diastolic 50–69; PULSE 75–117; TEMP 97.4–99.7
[2023-06-19 06:45] LABS: HEMOGLOBIN 10.5 g/dl (12.5-16.0); MEAN CELL VOLUME 91 fl (80.0-100.0); MEAN CORPUSCULAR HEMOGLOBIN 29 pg (27-31); MEAN CORPUSCULAR HGB CONC 32 g/dl (33.0-37.0); MEAN PLATELET VOLUME 9.2 fl (7.4-10.4); PLATELET COUNT 241 K/mm3 (130-400); REDCELL DISTRIBUTION WIDTH-CV 14.2 % (11.5-14.5)
[2023-06-19 06:51] LABS: HEMATOCRIT 32.9 % (37.0-47.0)
--- NOTE | 2023-06-19 07:00 | NUR ---
PATINET AWAKE AND ALERT, SITTING UP IN BED. PATIENT HAS NO NEEDS OR CONCERS AT THIS TIME. CALL LIGTH WITHIN REACH
[2023-06-19 07:07] LABS: EOSINOPHIL 7 % (0-4); HYPOCHROMIA 2+; LYMPHOCYTE 17 % (20.0-51.0); NEUTROPHILS 71 % (42.0-75.2); PLATELET ESTIMATE NORMAL (NORMAL)
--- NOTE | 2023-06-19 11:15 | NUR ---
Data: Patient is on isolation precautions. Earth Science Technical Officer in full PPE for visit. Patient described her illness and the extent of the wound on her foot to Earth Science Technical Officer. Assessment: Patient and (who goes by "Douglas") practice with the [place] madelyn traditions. Patient welcomed prayer. Plan of Care: Earth Science Technical Officer provided supportive listening and prayed to "GrandFather." Patient and her thanked Earth Science Technical Officer for the visit.
--- NOTE | 2023-06-19 12:00 | NUR ---
DRESSING CHANGE TO LEFT FOOT WOUND. PATIENT VOICES SATISFACTION WITH DRESSING CHANGE AND CARE. CALL LIGHT WITHIN REACH. PATIENT DENEIS ANY NEEDS OR COMOPLAINTS AT THIS TIME.
--- NOTE | 2023-06-20 01:10 | NUR ---
THE NURSING SHIFT ASSESSMENT COMPLETED. THE PATIENT WAS ALERT, ORIENTED AND APPROPRIATE. THE TIMING OF THE DRESSING CHANGE WAS DISCUSSED. THE PLAN OF CARE AND EVENING MEDICATIONS REVIEWED. FRESH ICE, WATER AND KLEENEX PROVIDED. THE PATIENT DOES HAVE A COUGH THAT IS NON PRODUCTIVE. NO OTHER NEEDS AT THIS TIME. THE PATIENT IS UP INDEPENDENTLY IN THE ROOM. BED IN LOW POSITION, CALL LIGHT AVAILABLE, PERSONAL BELONGINGS ARE IN THE ROOM.
[2023-06-20 01:17] VITALS: BP_SYST 110
[2023-06-20 03:53] VITALS: BP 119/56; PULSE 67; TEMP 97
[2023-06-20 05:00] VITALS: BP_SYST 119
--- NOTE | 2023-06-20 07:00 | NUR ---
PATIENT AWAKE AND ALERT, RESTING IN BED. PATIENT DENIES ANY NEEDS OR COMPLAINTS AT THIS TIME. CALL LIGHT WITHIN REACH.
[2023-06-20 08:02] LABS: MEAN CELL VOLUME 91 fl (80.0-100.0); MEAN CORPUSCULAR HGB CONC 32 g/dl (33.0-37.0); MEAN PLATELET VOLUME 9.2 fl (7.4-10.4); PLATELET COUNT 271 K/mm3 (130-400); RED BLOOD COUNT 3.35 M/mm3 (4.10-5.30); REDCELL DISTRIBUTION WIDTH-CV 14.2 % (11.5-14.5)
[2023-06-20 08:07] LABS: HEMATOCRIT 30.6 % (37.0-47.0); HEMOGLOBIN 9.7 g/dl (12.5-16.0); MEAN CORPUSCULAR HEMOGLOBIN 29 pg (27-31)
[2023-06-20 08:42] VITALS: BP 129/73; PULSE 66; TEMP 97.8
[2023-06-20 09:00] VITALS: BP_SYST 129
--- NOTE | 2023-06-20 09:00 | NUR ---
DRESSING TO LEFT FOOT CHANGED. PATIENT GIVEN SUPPLIES FOR WOUND CARE AT HOME.
[2023-06-20 09:38] LABS: BAND 9 % (0-10); BASOPHIL 1 % (0-2); EOSINOPHIL 5 % (0-4); LYMPHOCYTE 10 % (20.0-51.0); NEUTROPHILS 67 % (42.0-75.2); PLATELET ESTIMATE NORMAL (NORMAL)
[2023-06-20 09:39] LABS: HYPOCHROMIA 2+
[2023-06-20] MEDS ORDERED: TESSALON P100 MG/CAP PO (10:31)
[2023-06-20] MEDS ORDERED: CEPHALEXIN500 M1 PO (10:35)
[2023-06-20] MEDS ORDERED: CIPRO 500MG TA500 MG PO (10:35)
--- NOTE | 2023-06-20 11:54 | NUR ---
PICC line removed per protocol. Pt instructed to remain flat until 1200. Verbalizes understanding.
--- NOTE | 2023-06-20 12:05 | NUR ---
PATIENT AWAKE AND ALERT, SITTING UP IN BED. PATIENTS PICC LINE REMOVED. PICC RMEOVAL ACCESS SITE CDI. PATIENT AWAITING HIS RIDE.
--- NOTE | 2023-06-20 12:15 | NUR ---
PATIENT GIVEN DISCHARGE INSTRUCTIOSN AND EDUCATION WELL POST PICC RMOEVAL DISCHARGE INSTRUCTIONS.
--- NOTE | 2023-06-20 13:25 | NUR ---
PATIENT TAKEN TO ER ENTRACE VIA WHEEL CHAIR BY PCT WHERE SHE LEFT INSTBALE CONDITION WITH HER
== END 2023-06-20 13:39 | disposition home or self-care (01) | DRG 637 ==
LOC: COL.ER 06:53 → ICU 10:20 → MEDICAL 06-15 16:25
PROVIDERS: Emergency Medicine; Physician Assistant; ADMIT Internal Medicine
PROC: 02HV33Z Insertion of Infusion Device into Superior Vena Cava, Percutaneous Approach (ICD-10-PCS; principal; 2023-06-14)
DX: E11.10 Type 2 diabetes mellitus with ketoacidosis without coma (principal); U07.1 COVID-19; L97.429 Non-pressure chronic ulcer of left heel and midfoot with unspecified severity; E87.1 Hypo-osmolality and hyponatremia; E11.621 Type 2 diabetes mellitus with foot ulcer; Z79.4 Long term (current) use of insulin; D64.9 Anemia, unspecified; E87.5 Hyperkalemia; I10 Essential (primary) hypertension; E78.5 Hyperlipidemia, unspecified; G47.00 Insomnia, unspecified; E11.40 Type 2 diabetes mellitus with diabetic neuropathy, unspecified
CPT/HCPCS: C1751; C9113; J0692; J1650; J1815; J2020; J2185; J2405; J2543; J7030; J7120; Q3014

== ENCOUNTER 2023-08-26 09:58 | Inpatient (IN) | payer OTHER ==
[~2023-08-26] VITALS: Ht 170.2 cm; Wt 120.0 kg
--- NOTE | 2023-08-26 07:39 | NUR ---
Initial visit from Supply Chain Associate Claim Service Representativecristin Salgado: Claim Service Representative visited Ekaterina who was doing ok at the time. She is worried about losing her leg. We shared a prayer for God's presence to calm her and help her feel God's presence in her life and also to ask for strength and courage to face whatever is ahead.
[~2023-08-26 09:58] MED LIST changes: +ACTOS 15MG TAB15 MG PO; +ALDACTONE 100M100 MG PO; +CIPRO 500MG TA500 MG PO; +DESYREL 100MG100 MG PO; +TESSALON P100 MG/CAP PO
[2023-08-26] MEDS ORDERED: NS 1,000 ML IV ONE (11:00)
[2023-08-26 12:14] LABS: ALBUMIN 2.5 gm/dL (3.5-5.0); BILIRUBIN,TOTAL 0.2 mg/dL (0.2-1.2); CALCIUM 9.2 mg/dL (8.4-10.2); CREATININE, serum 1.32 mg/dL (0.57-1.11); TOTAL PROTEIN 6.4 gm/dL (6.2-8.1)
[2023-08-26] MEDS ORDERED: Ondansetron 4 MG/2 ML VIAL IV ONE ×2 (12:15→14:15)
[2023-08-26 12:16] LABS: C-REACTIVE PROTEIN 33.29 mg/dL (0.00-0.50)
[2023-08-26 12:20] LABS: POTASSIUM 4.1 mmol/L (3.5-4.5)
[2023-08-26 12:31] LABS: BASO # 0.1 K/mm3 (0.0-0.2); BASO % 0.4 % (0.0-2.0); EOS # 0.2 K/mm3 (0.0-0.7); EOS % 1.2 % (0.0-4.0); GRAN # 13.7 K/mm3 (1.4-6.5); GRAN % 82.9 % (42.2-75.2); HEMATOCRIT 35.9 % (37.0-47.0); HEMOGLOBIN 11.3 g/dl (12.5-16.0); LYMPH # 1.4 K/mm3 (1.2-3.4); LYMPH % 8.6 % (20.0-51.0); MEAN CELL VOLUME 89 fl (80.0-100.0); MEAN CORPUSCULAR HEMOGLOBIN 28 pg (27-31); MEAN CORPUSCULAR HGB CONC 32 g/dl (33.0-37.0); MEAN PLATELET VOLUME 10.4 fl (7.4-10.4); MONO # 1.1 K/mm3 (0.1-0.6); MONO % 6.4 % (1.7-9.3); PLATELET COUNT 321 K/mm3 (130-400); RED BLOOD COUNT 4.04 M/mm3 (4.10-5.30); REDCELL DISTRIBUTION WIDTH-CV 13.6 % (11.5-14.5)
[2023-08-26] MEDS ORDERED: NOVOLOG 100U100 U/M1 SQ (13:09)
[2023-08-26] MEDS ORDERED: LANTUS SOLOS100 U/ML SQ (13:10)
[2023-08-26] MEDS ORDERED: LASIX 40MG TABL40 MG PO (13:10)
[2023-08-26] MEDS ORDERED: Insulin Lispro (HumaLOG) SQ SCH ×2 (13:34→18:00)
[2023-08-26] MEDS ORDERED: Melatonin 3 MG TAB PO PRN (13:45)
[2023-08-26] MEDS ORDERED: Ondansetron 4 MG/2 ML VIAL IV PRN (13:45)
[2023-08-26] MEDS ORDERED: Acetaminophen 325 MG TAB PO PRN ×2 (13:45→16:30)
[2023-08-26] MEDS ORDERED: Heparin 5,000 UNITS/ML 1 ML VIAL SQ SCH (16:00)
[2023-08-26 16:20] VITALS: BP 117/73; PULSE 95; TEMP 99.2
--- NOTE | 2023-08-26 16:43 | NUR ---
pt alert and oriented, VSS. Arrived to the surgical unit aroud 1600 via wheelcahir transport with medical staff. PICC to R upper arm placed today, dual lumen and is patent. Pt upon arrival c/o HUANG rated 7/10. Medicated for headache with Tylenol. Surgeon PA in the room to assess the R foot and go over findings and inital prognosis with pt, pt is understanding. Wound to R foot redressed with telfa, gauze, and chucho wrap. Pt able to ambulate to restroom independantly with no assistive devices. Shift assessment complete. Resting in bed, denies further need. Call light within reach.
[2023-08-26 17:00] VITALS: BP_SYST 117
[2023-08-26] MEDS ORDERED: Dextrose 50% Water 25 GM/50 ML SYRINGE IV PRN (17:00)
[2023-08-26] MEDS ORDERED: Glucagon 1 MG VIAL IM PRN (17:00)
[2023-08-26] MEDS ORDERED: Dextrose (Glucose) 15 GM (4 x 3.75 GM) Chewable TABLET PACK PO PRN (17:00)
[2023-08-26] MEDS ORDERED: Pantoprazole 40 MG in NS 10 ML IV SCH (17:23)
[2023-08-26] MEDS ORDERED: traZODone 100 MG TAB PO PRN (17:30)
[2023-08-26 20:16] VITALS: BP 111/60; PULSE 83; TEMP 99
[2023-08-26 21:00] VITALS: BP_SYST 121
[2023-08-26] MEDS ORDERED: Pregabalin 150 MG CAP PO SCH (21:00)
[2023-08-26] MEDS ORDERED: Rosuvastatin 40 MG **** subs to Atorvastatin 80 MG PO SCH (21:00)
[2023-08-26 23:27] VITALS: BP 121/58; PULSE 84; TEMP 99.3
[2023-08-27] VITALS (11 sets, daily range): BP systolic 99–121; BP diastolic 47–59; PULSE 69–81; TEMP 97.5–98.5
[2023-08-27] MEDS ORDERED: Ondansetron 4 MG/2 ML VIAL IV PRN (01:45)
--- NOTE | 2023-08-27 02:45 | NUR ---
NURSING SHIFT ASSESSMENT COMPLETED. THE PATIENT WAS ALERT AND ORIENTED. THE DRESSING TO THE PATIENTS RIGHT FOOT WAS CLEAN/DRY AND INTACT. THE DRESSING TO THE PATIENTS LEFT FOOT WAS CLEAN/DRY AND INTACT. THE PATIENT IS UP INDEPENDENTLY IN THE ROOM. PER THE ADMITTING PHYSICIAN IF THE PATIENT CAN WALK ON THE RIGHT FOOT WBAT IS ACCEPTABLE. THE PATIENT IS TOLERATING THE ACTIVITY WELL. THE PLAN OF CARE AND EVENING MEDICATIONS REVIEWED. CALL LIGHT AVAILABLE AND BED IN LOW POSITION.
[2023-08-27 06:29] LABS: BASO # 0.1 K/mm3 (0.0-0.2); BASO % 0.5 % (0.0-2.0); EOS # 0.2 K/mm3 (0.0-0.7); EOS % 1.5 % (0.0-4.0); GRAN # 11.4 K/mm3 (1.4-6.5); GRAN % 78.8 % (42.2-75.2); LYMPH # 1.5 K/mm3 (1.2-3.4); MEAN CELL VOLUME 87 fl (80.0-100.0); MEAN CORPUSCULAR HGB CONC 33 g/dl (33.0-37.0); MEAN PLATELET VOLUME 9.8 fl (7.4-10.4); MONO # 1.2 K/mm3 (0.1-0.6); MONO % 8.4 % (1.7-9.3); PLATELET COUNT 325 K/mm3 (130-400); RED BLOOD COUNT 3.28 M/mm3 (4.10-5.30); REDCELL DISTRIBUTION WIDTH-CV 13.6 % (11.5-14.5)
[2023-08-27 06:43] LABS: INR 1.7 (0.8-3.0); PROTHROMBIN TIME 18.1 SECONDS (9.7-12.8)
[2023-08-27 06:44] LABS: CALCIUM 8.6 mg/dL (8.4-10.2); CHOLESTEROL RISK RATIO 4.6; CREATININE, serum 1.22 mg/dL (0.57-1.11); POTASSIUM 3.8 mmol/L (3.5-4.5)
[2023-08-27 06:49] LABS: HEMATOCRIT 28.6 % (37.0-47.0); HEMOGLOBIN 9.3 g/dl (12.5-16.0); MEAN CORPUSCULAR HEMOGLOBIN 28 pg (27-31)
--- NOTE | 2023-08-27 07:13 | NUR ---
Report received from SHENA Jaquez. Reviewed POC. Pt resting in bed with call light within [facility].
[2023-08-27] MEDS ORDERED: Furosemide 40 MG TAB PO SCH (09:00)
[2023-08-27] MEDS ORDERED: Insulin Glargine-ygfn (Lantus) SQ SCH (09:00)
--- NOTE | 2023-08-27 13:37 | NUR ---
Prosthetic Aide met with patient to discuss discharge planning. Patient lives outside of [place] with her , Edmundo (ph#[phone]) [address] Dr. Thorne for primary care. Patient obtains medications at [facility]. Patient has been primarily using a wheelchair and advised she can transfer herself independently. Patient is independent with ADLS like dressing and bathing. Patient was employed at [employer], however lost her job due to her health issues. Patient advised she has health insurance coverage until the end of the month and that her is working on getting her put on his insurance through his employer. Patient may need an amputation. SW discussed discharge planning and the possible need for post acute rehab. Patient would be interested in IPR if recommended and if she qualified. Discharge Plan: May need post acute rehab
--- NOTE | 2023-08-27 13:41 | NUR ---
Dressing changed after doctor in room to discuss plan for tomorrow. Consent signed by pt for surgery tomorrow.
--- NOTE | 2023-08-27 15:43 | NUR ---
Report received from SHENA Steve.
--- NOTE | 2023-08-27 16:14 | NUR ---
Patient is resting in bed, family at the bedside. Alert and oriented x 4, denies any pain or discomfort at this time. Dressing CDI, chucho wrap around it. Dressing on the ball of right foot. Aware of NPO after midnight and procedure tomorow morning.
--- NOTE | 2023-08-27 18:31 | NUR ---
Patient having her dinner and talking with family by phone. No further needs right now.
--- NOTE | 2023-08-27 20:43 | NUR ---
PT INDEPENDENT IN ROOM. HAS DRSG TO LT FOOT D/I. HS MEDS GIVEN INCLUDING PRN NORCO FOR FOOT PAIN. HAS RT UPPER ARM PICC, PATENT. WILL BE NPO AT MIDNIGHT, PT AWARE.
--- NOTE | 2023-08-27 22:40 | NUR ---
PT ASKS FOR TRAZODONE FOR SLEEP, DOSE GIVEN. RT PICC PATENT, FLUSHES WELL.
[2023-08-28] VITALS (15 sets, daily range): BP systolic 101–128; BP diastolic 52–79; PULSE 68–78; TEMP 97.6–99.3
--- NOTE | 2023-08-28 02:00 | NUR ---
IV ZOSYN INFUSING WITHOUT PROBLEM TO RT PICC. PT NPO FOR SURGERY.
[2023-08-28] MEDS ORDERED: NS 1,000 ML IV SCH ×2 (06:00→11:30)
--- NOTE | 2023-08-28 06:00 | NUR ---
HAS BEEN NPO SINCE MIDNIGHT. NO CONCERNS AT THIS TIME.
[2023-08-28 06:41] LABS: BASO # 0.1 K/mm3 (0.0-0.2); BASO % 0.6 % (0.0-2.0); EOS # 0.4 K/mm3 (0.0-0.7); EOS % 3.9 % (0.0-4.0); GRAN # 6.1 K/mm3 (1.4-6.5); GRAN % 65.8 % (42.2-75.2); LYMPH # 1.9 K/mm3 (1.2-3.4); LYMPH % 20.1 % (20.0-51.0); MEAN CELL VOLUME 88 fl (80.0-100.0); MEAN CORPUSCULAR HGB CONC 32 g/dl (33.0-37.0); MEAN PLATELET VOLUME 9.8 fl (7.4-10.4); MONO # 0.8 K/mm3 (0.1-0.6); PLATELET COUNT 279 K/mm3 (130-400); RED BLOOD COUNT 3.18 M/mm3 (4.10-5.30); REDCELL DISTRIBUTION WIDTH-CV 13.7 % (11.5-14.5)
[2023-08-28 06:49] LABS: HEMATOCRIT 27.9 % (37.0-47.0); HEMOGLOBIN 8.9 g/dl (12.5-16.0); MEAN CORPUSCULAR HEMOGLOBIN 28 pg (27-31)
--- NOTE | 2023-08-28 07:00 | NUR ---
Pt is awake restingin bed. bedside. Pt is RA and not on tele. Pt's foot dressing has some drainage. Dressing reinforced. Ortho bedside talking to Pt and . 0717-Pt taken down to OR.
[2023-08-28] MEDS ORDERED: Lidocaine PF 2% (20 MG/ML) 5 ML VIAL ONE ×2 (07:02→07:05)
[2023-08-28] MEDS ORDERED: fentaNYL 50 MCG/ML 2 ML VIAL ONE ×2 (07:02→09:47)
[2023-08-28] MEDS ORDERED: Ondansetron 4 MG/2 ML VIAL ONE ×2 (07:02→07:04)
[2023-08-28] MEDS ORDERED: Glycopyrrolate 0.2 MG/ML 1 ML VIAL ONE ×2 (07:02→07:04)
[2023-08-28] MEDS ORDERED: dexAMETHasone 10 MG/ML VIAL ONE ×2 (07:02→07:04)
[2023-08-28] MEDS ORDERED: Rocuronium 50 MG/5 ML Multi-Dose VIAL ONE (07:02)
[2023-08-28] MEDS ORDERED: NS 250 ML IV ONE (07:02)
[2023-08-28] MEDS ORDERED: Succinylcholine PF 200 MG/10 ML SYRINGE IV ONE (07:02)
[2023-08-28] MEDS ORDERED: NS 10 ML IV ONE ×2 (07:04→07:14)
[2023-08-28] MEDS ORDERED: Phenylephrine 10 MG/ML VIAL ONE ×2 (07:04→07:14)
[2023-08-28 07:11] LABS: CALCIUM 8.4 mg/dL (8.4-10.2); CREATININE, serum 1.01 mg/dL (0.57-1.11); POTASSIUM 3.8 mmol/L (3.5-4.5)
[2023-08-28] MEDS ORDERED: ALBUMIN IV ONE (07:12)
[2023-08-28] MEDS ORDERED: Midazolam 2 MG/2 ML VIAL ONE (07:14)
[2023-08-28] MEDS ORDERED: HYDROmorphone 2 MG/1 ML VIAL IV PRN (09:00)
[2023-08-28] MEDS ORDERED: Ondansetron 4 MG/2 ML VIAL IV PRN ×2 (09:00→11:30)
[2023-08-28] MEDS ORDERED: Morphine 4 MG/ML VIAL IV PRN ×3 (09:00→11:30)
[2023-08-28] MEDS ORDERED: hydrALAZINE 20 MG/ML 1 ML VIAL IV PRN (09:00)
[2023-08-28] MEDS ORDERED: HYDROmorphone 2 MG/1 ML VIAL IV ONE ×2 (11:15→11:20)
[2023-08-28] MEDS ORDERED: Ondansetron 4 MG/2 ML VIAL IV ONE (11:16)
[2023-08-28] MEDS ORDERED: oxyCODONE 5 MG TAB PO PRN ×2 (11:30)
[2023-08-28] MEDS ORDERED: Naloxone 0.4 MG/ML VIAL IV PRN (11:30)
[2023-08-28] MEDS ORDERED: Acetaminophen 325 MG TAB PO PRN (11:30)
--- NOTE | 2023-08-28 11:40 | NUR ---
PT BACK TO ROOM FROM PACU. PT IS AXOX3. PT'S VSS. PT ON 2L NC. PT DROPS TO 88 ON RA. PT TOLERATING WATER. MEDS GIVEN. PT GIVEN CALL LIGHT AND INSTRUCTED TO CALL WITH ALL NEEDS. PT'S BEDSIDE.
[2023-08-28] MEDS ORDERED: Insulin Glargine-ygfn (Lantus) SQ SCH (16:11)
[2023-08-28 20:53] LABS: CALCIUM 8.4 mg/dL (8.4-10.2); CREATININE, serum 1.25 mg/dL (0.57-1.11); MAGNESIUM 1.9 mg/dL (1.6-2.6); POTASSIUM 5.2 mmol/L (3.5-4.5)
--- NOTE | 2023-08-28 20:58 | NUR ---
CALL PLACED TO HOSPITALISTCOREY PATIENT BG IN UPPER 500'S. TORB FOR BMP AND MAG LAB GIVEN. WHOLE BG RESULT- [id number]. TORB TO BOLUS NS 1L AND GIVE 10 UNITS INSULIN IV.
[2023-08-28] MEDS ORDERED: Insulin Regular Human (NovoLIN R/HumuLIN R) IV ONE ×2 (21:00→22:15)
[2023-08-28] MEDS ORDERED: NS 1,000 ML IV ONE (21:00)
[2023-08-29] VITALS (831 sets, daily range): BP systolic 97–136; BP diastolic 51–84; PULSE 63–82; TEMP 97.4–98.2; O2SAT 44–100
[2023-08-29] MEDS ORDERED: Insulin Human Regular/NS 100 ML IV SCH (01:15)
--- NOTE | 2023-08-29 01:15 | NUR ---
CALL PLACED TO HOSPITALIST COREY. AFTER TWO ATTEMPTS OF IV PUSH 10 UNITS INSULIN, PATIEMT'S BG REMAINS IN UPPER 400'S. TORB TO TRANSFER PATIENT TO [facility] GIVEN.
--- NOTE | 2023-08-29 01:31 | NUR ---
PATIENT REPORT GIVEN TO MILTON HENLEY
[2023-08-29 03:23] LABS: MAGNESIUM 1.9 mg/dL (1.6-2.6)
--- NOTE | 2023-08-29 03:23 | NUR ---
AT 0243 PATIENT ARRIVES TO ROOM 5 FROM ROOM 350 BY WHEELCHAIR, PATIENT MOVES EASILY FROM WC TO BED WUTH SOME ASSISTANCE 2 PERSON AT 0130 NURSE REPORT RECIVED FROM LENARD CHATTERJEE. 0155 CBS 434 PLACED ON INSULIN DRIP 5 UN/HR BY ORDER FROM
[2023-08-29 03:48] LABS: CALCIUM 8.1 mg/dL (8.4-10.2); CREATININE, serum 1.13 mg/dL (0.57-1.11); POTASSIUM 4.4 mmol/L (3.5-4.5)
[2023-08-29 05:11] LABS: PHOSPHOROUS 3.1 mg/dL (2.3-4.7)
[2023-08-29 05:55] LABS: BASO % 0.3 % (0.0-2.0); GRAN % 79.1 % (42.2-75.2); LYMPH # 1.4 K/mm3 (1.2-3.4); LYMPH % 12.6 % (20.0-51.0); MEAN CELL VOLUME 89 fl (80.0-100.0); MEAN CORPUSCULAR HGB CONC 31 g/dl (33.0-37.0); MEAN PLATELET VOLUME 9.6 fl (7.4-10.4); MONO # 0.8 K/mm3 (0.1-0.6); MONO % 6.7 % (1.7-9.3); PLATELET COUNT 303 K/mm3 (130-400); RED BLOOD COUNT 3.07 M/mm3 (4.10-5.30); REDCELL DISTRIBUTION WIDTH-CV 13.8 % (11.5-14.5)
[2023-08-29 06:15] LABS: CREATININE, serum 1.08 mg/dL (0.57-1.11); POTASSIUM 4.2 mmol/L (3.5-4.5)
[2023-08-29 06:22] LABS: HEMATOCRIT 27.4 % (37.0-47.0); HEMOGLOBIN 8.6 g/dl (12.5-16.0); MEAN CORPUSCULAR HEMOGLOBIN 28 pg (27-31)
--- NOTE | 2023-08-29 07:32 | NUR ---
Patient has ns at 150 ml/hr and insulin gtt at 8.5. She is resting in bed, did have a bowel movement with 2 person assist, on menses. pain at a 4/10 at this time in amputated leg described as sore. will continue to monitor for significant changes.
[2023-08-29 07:52] LABS: CALCIUM 8.2 mg/dL (8.4-10.2); CREATININE, serum 1.03 mg/dL (0.57-1.11)
[2023-08-29] MEDS ORDERED: D5 1/2 NS 1,000 ML IV SCH (09:00)
[2023-08-29 09:40] LABS: CALCIUM 7.1 mg/dL (8.4-10.2); CREATININE, serum 0.77 mg/dL (0.57-1.11); POTASSIUM 3.3 mmol/L (3.5-4.5)
[2023-08-29] MEDS ORDERED: diphenhydrAMINE 50 MG/ML 1 ML VIAL IV ONE (10:00)
[2023-08-29] MEDS ORDERED: Insulin Lispro (HumaLOG) SQ SCH ×2 (12:00)
[2023-08-29] MEDS ORDERED: diphenhydrAMINE 25 MG CAP PO PRN (15:00)
[2023-08-29] MEDS ORDERED: Insulin Glargine-ygfn (Lantus) SQ SCH (21:00)
[2023-08-30] VITALS (10 sets, daily range): BP systolic 104–149; BP diastolic 68–89; PULSE 69–87; TEMP 97.3–97.9; O2SAT 85–97
--- NOTE | 2023-08-30 09:05 | NUR ---
RECEIVED REPORT FROM NIGHTSHIFT RNCORIN. PATIENT RESTING IN BED WATCHING TV. BED IN LOW POSITION. CALL LIGHT WITHIN REACH.
--- NOTE | 2023-08-30 09:10 | NUR ---
HEAD TO TOE ASSESSMENT COMPLETED. PATIENT IS ALERT AND ORIENTED. UP TO BEDSIDE COMMODE TO VOID WITH 1X SBA WITH WALKER. PATIENT HAD SURGERY YESTERDAY (08/28) TO AMPUTATE LEFT LOWER EXTREMITY AT MID [place]. PUPILS EQUAL AND REACTIVE. HEART SOUNDS REGULAR WITH S1 AND S2 NOTED. LUNG SOUNDS CLEAR BILATERALLY IN UPPER AND LOWER LOBES. BOWEL SOUNDS ACTIVE X4. PULSES PRESENT BILATERALLY IN UPPER EXTREMITIES AND TO RIGHT LOWER EXTREMITY. PATIENT HAS DRESSING WITH KELVIN WRAP TO LEFT LOWER EXTREMITY. PATIENT REPORTS 8/10 PAIN TO THE AREA. MEDICATIONS GIVEN PER EMAR. PATIENT IS ABLE TO ORDER BREAKFAST INDEPENDENTLY AND DOES SO AT THIS TIME. PATIENT HAS SOME CONCERNS WITH NURSING CARE SHE RECEIVED THROUGHOUT THE NIGHT, EULA, ICU FINANCIAL PLANNER NOTIFIED. BED IN A LOW POSITION. CALL LIGHT WITHIN REACH.
--- NOTE | 2023-08-30 09:30 | NUR ---
Initial visit; Ekaterina thanked Exploitation Analyst for looking in on her and offering encouragement based upon her positive outlook of her recent loss of her leg through surgery. Ekaterina says she is relieved that once she gets a prosthesis she will be on her way and not have to live with the pain and problems of infections. Ekaterina was receptive to having prayer with Exploitation Analyst and to be kept in Exploitation Analyst's prayers.
[2023-08-30] MEDS ORDERED: *Potassium Replacement Protocol MC SCH (10:30)
[2023-08-30] MEDS ORDERED: Sodium Bicarbonate 650 MG TAB PO SCH (10:30)
[2023-08-30 11:23] LABS: CALCIUM 8.1 mg/dL (8.4-10.2); CREATININE, serum 1.07 mg/dL (0.57-1.11); POTASSIUM 4.3 mmol/L (3.5-4.5)
[2023-08-30] MEDS ORDERED: Insulin Lispro (HumaLOG) SQ SCH ×2 (12:00)
--- NOTE | 2023-08-30 12:54 | NUR ---
quality worker followed up on patient's insurance. LULU Marie reports [employer] is covering patient until end of the month. ATIF spoke with Cad Designer Nuria and provided an update. She reports she will meet with pt today and complete the Medicaid application. ATIF spoke with IPR Director Ayleen who reports she has the referral on pt and work to get auth from insurance today. Discharge Plan: IPR tbd
--- NOTE | 2023-08-30 13:45 | NUR ---
PATIENT ARRIVED FROM ICU AWAKE, ALERT AND IN STABLE CONDITION. PATIENT DENIES ANY NEEDS OR COMPLAINTS AT THIS TIME. CALL LIGHT WITHIN REACH, FALL PORECAUTIONS IN PLACE.
--- NOTE | 2023-08-30 20:30 | NUR ---
UPON SHIFT ASSESSMENT, YAO WAS IN BED AWAKE AND AXO X4. 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 VS ARE WNL AND BG 195 4 UNITS HIGH SLIDING SCALE INSULIN GIVEN. YAO C/O OF HUANG RATED 7/10. WILL ADMINISTER PRN TYLENOL. O OTHER NEEDS STATED AT THIS TIME. BED ALARM CHARCOAL BURNER BEEHIVE KILN LIGHT WITHI REACH.
[2023-08-31 02:38] VITALS: BP 100/62; PULSE 73; TEMP 98.5
[2023-08-31 07:46] LABS: MEAN CELL VOLUME 88 fl (80.0-100.0); MEAN CORPUSCULAR HGB CONC 32 g/dl (33.0-37.0); MEAN PLATELET VOLUME 8.9 fl (7.4-10.4); PLATELET COUNT 226 K/mm3 (130-400); RED BLOOD COUNT 3.98 M/mm3 (4.10-5.30); REDCELL DISTRIBUTION WIDTH-CV 13.7 % (11.5-14.5)
[2023-08-31 07:48] LABS: HEMOGLOBIN 11.3 g/dl (12.5-16.0); MEAN CORPUSCULAR HEMOGLOBIN 28 pg (27-31)
[2023-08-31 07:59] LABS: CALCIUM 8.2 mg/dL (8.4-10.2); CREATININE, serum 0.8 mg/dL (0.57-1.11); MAGNESIUM 1.9 mg/dL (1.6-2.6); POTASSIUM 4.2 mmol/L (3.5-4.5)
[2023-08-31 08:24] VITALS: BP 133/81; PULSE 82; TEMP 97.6
[2023-08-31] MEDS ORDERED: LOVENOX 4040 MG/0.4 SQ (08:33)
[2023-08-31 09:57] LABS: EOSINOPHIL 2 % (0-4); HYPOCHROMIA 1+; LYMPHOCYTE 36 % (20.0-51.0); NEUTROPHILS 49 % (42.0-75.2); PLATELET ESTIMATE NORMAL (NORMAL)
--- NOTE | 2023-08-31 09:59 | NUR ---
other sales support worker attended interdisciplinary clinical rounding. Patient will start IPR services potentially today. SW met with IPR director, Ayleen, whom reports they are determining if patient will stay in her current room for overflow or move to the IPR floor.
[2023-08-31] MEDS ORDERED: ROXICODONE 55 MG/TAB PO (10:06)
[2023-08-31] MEDS ORDERED: TYLENOL 325MG325 MG PO (10:06)
--- NOTE | 2023-08-31 11:06 | NUR ---
PT RESTING IN BED WITH PAIN 6/10 IN LEFT KNEE ABOVE BKA. PAIN MEDICATION PROVIDED PER EMAR. PT UP TO BSC 2 ASSIST WITH WALKER. TOELRATING DEIT WELL, BLOOD SUGAR CONTROLLED. MEPOLEX TO RIGHT GREAT TOE CLEAN AND DRY. WILL DISCHARGE PT TO [facility].
== END 2023-08-31 11:08 | DRG 854 ==
LOC: COL.ER 09:58 → SURG 13:36 → ICU 13:36 → SURG 08-30 14:12
PROVIDERS: Internal Medicine; Nurse Practitioner Family; Orthopaedic Surgery; Physician Assistant; ADMIT Internal Medicine
PROC: 02HV33Z Insertion of Infusion Device into Superior Vena Cava, Percutaneous Approach (ICD-10-PCS; 2023-08-27)
PROC: 0Y6J0Z1 Detachment at Left Lower Leg, High, Open Approach (ICD-10-PCS; principal; 2023-08-28 08:00)
DX: A41.9 Sepsis, unspecified organism (principal); L02.612 Cutaneous abscess of left foot; E11.10 Type 2 diabetes mellitus with ketoacidosis without coma; M86.8X7 Other osteomyelitis, ankle and foot; N17.9 Acute kidney failure, unspecified; E11.69 Type 2 diabetes mellitus with other specified complication; K21.9 Gastro-esophageal reflux disease without esophagitis; E78.5 Hyperlipidemia, unspecified; G47.00 Insomnia, unspecified; L97.529 Non-pressure chronic ulcer of other part of left foot with unspecified severity; J43.9 Emphysema, unspecified; D64.9 Anemia, unspecified; E11.40 Type 2 diabetes mellitus with diabetic neuropathy, unspecified; I10 Essential (primary) hypertension; Z79.4 Long term (current) use of insulin; Z79.82 Long term (current) use of aspirin; Z79.899 Other long term (current) drug therapy; Z90.49 Acquired absence of other specified parts of digestive tract; Z89.421 Acquired absence of other right toe(s); Z88.2 Allergy status to sulfonamides; Z88.1 Allergy status to other antibiotic agents; Z91.040 Latex allergy status; Z86.14 Personal history of Methicillin resistant Staphylococcus aureus infection; Z23 Encounter for immunization
CPT/HCPCS: C1751; C9113; J0690; J1100; J1170; J1200; J1815; J2020; J2250; J2371; J2405; J2543; J2598; J2704; J2795; J3010; J7030; J7050; P9047; Q3014